=== PATIENT | female | born 1970 | race Caucasian/White ===

== ENCOUNTER → 2024-03-04 | Outpatient (CLI) | payer OTHER ==
[2024-03-04 16:28] VITALS: BP 139/75; PULSE 89; RESP 16; TEMP 98
--- NOTE | 2024-03-04 16:54 | P.SLEEP ---
History of Present Illness DATE: 03/04/2024 CONSULTATION/NEW PATIENT EVALUATION HISTORY OF PRESENT ILLNESS/SLEEP-WAKE EVALUATION: 54-year-old lady had been evaluated in the sleep center for possible obstructive sleep apnea hypopnea syndrome. SLEEP SCHEDULE: Usually sleep schedule from 11 PM until 4 PM. FALLING ASLEEP: Patient has difficulties with falling asleep. DURING SLEEP: Patient has loud snoring and wakes up from sleep up to 10 times with 2 episodes of nocturia. Positive history of grinding teeth and sleep talking. No history of hypnogogical hallucinations, sleep paralysis, or cataplexy. DURING THE DAY/WAKE STATE: In the morning patient wake up tired, has difficulties to pay attention, falling asleep during the day, has problems with memory, depression and anxiety. [place] sleepiness scale is significantly increased to 13. Patient may take additional nap from 5 PM to 8 PM. PAST MEDICAL HISTORY: Hypertension, hyperlipidemia, fibromyalgia, asthma, depression, anxiety, acid reflux . PAST SURGICAL HISTORY: , tubal ligation, left ovary ectomy. MEDICATIONS: Seroquel once a day, Lyrica twice a day, Latuda once a day, losartan once a day, Lexapro once a day, Prilosec once a day, albuterol as needed. Patient did not know dosages of medication. SOCIAL HISTORY: Please see below. FAMILY HISTORY: Heart problems, sleep apnea, arthritis, thyroid problems. REVIEW OF SYSTEMS: Snoring, multiple awakenings from sleep, sleepiness during the day. No fevers. No double vision. No recent chest pain. No shortness of br eath. No abdominal pain. No bleeding episodes. No blood in urine. No seizure episodes. PHYSICAL EXAMINATION: GENERAL: A pleasant patient without any distress. VITAL SIGNS: Please see below, weight 226.0 pounds, BMI 42.7. HEENT: PERRLA, EOMI. Evaluation of oropharynx showed tongue protrudes midline, low position of soft palate Mallampati 4. NECK: Supple. No JVD. Thyroid is not palpable. 19-1/4 inches in circumference. LUNGS: Clear to percussion and to auscultation. Good air exchange. No wheezing or rhonchi. HEART: S1, S2 regular. No murmurs, gallops or rubs. ABDOMEN: Soft and nontender. Bowel sounds are present. No organomegaly appreciated. EXTREMITIES: No clubbing or cyanosis. PREDICTIVE MAINTENANCE SPECIALIST: Awake, alert, and oriented x3. Cranial nerves 2 to 7 intact. There is no fasciculation or atrophy noted. No focal deficits observed. ASSESSMENT: 1. Loud snoring, multiple awakenings from sleep, extremely low position of soft palate Mallampati 4, extremely wide neck 19-1/4 inches in circumference, significant sleepiness with [place] Sleepiness Scale 13 Obstructive sleep apnea hypopnea syndrome. 2. Patient staying in bed for sleep for about 15 hours and takes additional naps. Differential diagnosis include hypersomnia. 3. Obesity, BMI 42.7. 4. Hypertension. 5. Hyperlipidemia. 6 . Depression. 7. Anxiety. 8. Asthma. 9 . History of fibromyalgia. 10. Acid reflux. PLAN: 1. Polysomnography for evaluation of patient's breathing during sleep. 2. Following plan after reading sleep study. 3. Preferable position during sleep on the side. 4. No driving if patient feels any sleepiness. Patient is aware of civil and criminal liability for unsafe driving. 5. Sleep hygiene with regular sleep time for at least 7.5-8 hours. 6. Watching and aggressive losing weight. Thank you very much for referring this patient for consultation. Sincerely, Julio César Martinez MD, PhD, FAASM. Diplomat of [place] [employer], Sleep Medicine Board by [place] [employer] [employer] Chief Of Staff Doctor of [facility] [place] cc: Past Medical History Past Medical History: Asthma, Fibromyalgia, GERD/Reflux, Hyperlipidemia, Hypertension Additional Past Medical History / Comment(s): Depression and anxiety, sinus headaches, History of Any Multi-Drug Resistant Organisms: None Reported Past Surgical History: Section, Tubal Ligation Additional Past Surgical History / Comment(s): left oophorectomy Past Anesthesia/Blood Transfusion Reactions: No Reported Reaction Past Psychological History: Anxiety, Depression Smoking Status: Never smoker Past Alcohol Use History: None Reported Past Drug Use History: None Reported - Past Family History Father Family Medical History: Coronary Artery Disease (CAD) Sister(s) Family Medical History: Sleep Apnea/CPAP/BIPAP Additional Family Medical History / Comment(s): (Also: mom hx of arthritis, headaches) (mom/sister also have hx of mental illness (sister=bipolar, mom = anxiety, depression, PTSD) Medications and Allergies Home Medications Medication Instructions Recorded Confirmed Type Atorvastatin [Lipitor] 10 mg PO HS 01/07/24 01/07/24 History Escitalopram [Lexapro] 20 mg PO DAILY 01/07/24 01/07/24 History Losartan [Cozaar] 50 mg PO DAILY 01/07/24 01/07/24 History Lurasidone [Latuda] 1 tab PO HS 01/07/24 01/07/24 History Omeprazole [PriLOSEC] 40 mg PO DAILY 01/07/24 01/07/24 History Pregabalin [Lyrica] 100 mg PO BID 01/07/24 01/07/24 History QUEtiapine [SEROquel] 1 tab PO HS 01/07/24 01/07/24 History Allergies Allergy/AdvReac Type Severity Reaction Status Date / Time apple Allergy Nausea Verified 01/07/24 14:51 banana Allergy Unknown Verified 01/07/24 14:51 huddleston Allergy Nausea Verified 01/07/24 14:51 carrot Allergy Nausea Verified 01/07/24 14:51 celery Allergy Nausea Verified 01/07/24 14:51 clarithromycin [From Biaxin] Allergy Unknown Verified 01/07/24 14:51 coconut Allergy Unknown Verified 01/07/24 14:51 corn Allergy Nausea Verified 01/07/24 14:51 cucumber Allergy Nausea Verified 01/07/24 14:51 peach Allergy Anaphylaxis Verified 01/07/24 14:51 peanut Allergy Anaphylaxis Verified 01/07/24 14:51 potato Allergy Nausea Verified 01/07/24 14:51 shellfish derived Allergy Unknown Verified 01/07/24 14:51 squash Allergy Nausea Verified 01/07/24 14:51 tomato Allergy Nausea Verified 01/07/24 14:51 tree nut [Nut] Allergy Unknown Verified 01/07/24 14:51 Physical Exam Vitals: Vital Signs Temp Pulse Resp BP Pulse Ox 03/04/24 16:27 98.0 F 89 16 139/75 94 L Intake and Output 03/04/24 03/04/24 03/04/24 06:59 14:59 22:59 Other: Weight 102.512 kg Sleep Note - Sleep Data ESS Total: 13 - Sleep Note Sleep Note: Temperature: 98.0 F Pulse Rate: 89 Respiratory Rate: 16 Blood Pressure: 139/75 SpO2: 94 Height: 5 ft 1 in Weight: 102.512 kg BMI: Neck Circumference: 19.2
== END ==
LOC: 3 N SLEEP 15:58
PROVIDERS: ATTEND Internal Medicine
DX: G47.33 Obstructive sleep apnea (adult) (pediatric) (principal); E66.9 Obesity, unspecified; I10 Essential (primary) hypertension; E78.5 Hyperlipidemia, unspecified; F32.A Depression, unspecified; F41.9 Anxiety disorder, unspecified; J45.909 Unspecified asthma, uncomplicated; K21.9 Gastro-esophageal reflux disease without esophagitis; Z87.39 Personal history of other diseases of the musculoskeletal system and connective tissue; Z68.41 Body mass index [BMI] 40.0-44.9, adult; Z91.018 Allergy to other foods; Z88.1 Allergy status to other antibiotic agents; Z91.010 Allergy to peanuts; Z91.013 Allergy to seafood; Z79.899 Other long term (current) drug therapy
CPT/HCPCS: 99211

== ENCOUNTER 2024-03-28 19:56 | Outpatient (CLI) | payer OTHER ==
--- NOTE | 2024-03-31 10:41 | P.PCN ---
Description of Procedure: POLYSOMNOGRAPHY REPORT PROCEDURE(S)/DATE(S): Polysomnography 03/28/2024 CLINICAL: Patient has been seen in the sleep center for evaluation of obstructive sleep apnea-hypopnea syndrome. Please see my consultation. Sleep study has been done for evaluation of patient breathing during the sleep. PROCEDURE: The standard montage for clinical polysomnography included the electroencephalogram, the electrooculogram, the mentalis surface electromyography and Lead II cardiography. The respiratory battery consisted of measurements of nasal/buccal air flow, pressure transducer measurements from nose, thoracic and/or abdominal effort and intercostal surface electromyography. Video monitoring has been done to check for any parasomnia events. Nocturnal oxyhemoglobin saturations were obtained by finger oximetry. Step-syed titration with positive airway pressure was utilized to control the respiratory events, if necessary. RESULTS: During the diagnostic sleep study sleep efficiency was decreased to 81.1%. Latency to sleep onset was borderline 28.0 min. Sleep architecture showed stage NI was short 3.6%, Delta sleep was slightly short 4.4%, REM sleep was normal 23.7%. Respiratory channel showed 79 obstructive apneas, 0 mixed apneas, 1 central apneas, 172 hypopneas with lowest oxygen level 82%. Total apnea hypopnea index was 41.4. Heart rate was in the range between 65 and 75, average 69. EMG showed 0 periodic limb movements per hour. IMPRESSIONS: 1. Severe obstructive sleep apnea hypopnea syndrome. 2. No significant periodic limb movements have been documented. Please see other impressions from consultation PLAN: 1. The patient will have PAP titration for correction of respiratory abnormalities during the sleep. 2. Losing weight program. 3. Sleep hygiene with regular time in bed for at least 7-1/2 hours. 4. No driving if feeling sleepiness. Thank you very much for allowing me to participate in the management of your patient. Sincerely, Julio César Martinez MD, PhD, FAASM. Diplomat of [place] [employer], Sleep Medicine Board by [place] [employer] Chief [place] Division of [facility] [place] cc: Triny Marie MD
== END 2024-03-29 05:08 | disposition home or self-care (01) ==
LOC: 3 N SLEEP 19:56
PROVIDERS: ATTEND Internal Medicine
DX: G47.33 Obstructive sleep apnea (adult) (pediatric) (principal); Z91.018 Allergy to other foods; Z91.013 Allergy to seafood; Z88.1 Allergy status to other antibiotic agents; Z91.010 Allergy to peanuts
CPT/HCPCS: 95810